=== PATIENT | male | born 1980 ===

== ENCOUNTER 2020-08-08 18:15 | Emergency (ER) | payer OTHER ==
[~2020-08-08] VITALS: Ht 167.6 cm; Wt 74.8 kg
[2020-08-08 21:07] VITALS: BP 130/70
== END 2020-08-08 21:15 | disposition home or self-care (01) ==
LOC: EMS 18:15
DX: F29 Unspecified psychosis not due to a substance or known physiological condition (principal); F17.200 Nicotine dependence, unspecified, uncomplicated
CPT/HCPCS: 99284; Z7502